=== PATIENT | male | born 1960 | race Caucasian/White ===

== ENCOUNTER → 2018-05-03 | Outpatient (CLI) | payer BC | LOC: CARD 11:46 | PROVIDERS: ATTEND Internal Medicine Cardiovascular Disease | DX: I65.29 Occlusion and stenosis of unspecified carotid artery (principal); R07.9 Chest pain, unspecified; R51 Headache; E72.11 Homocystinuria; I10 Essential (primary) hypertension; R55 Syncope and collapse | CPT/HCPCS: 93306 ==

== ENCOUNTER → 2018-05-04 | Outpatient (CLI) | payer BC | LOC: CARD 10:23 | PROVIDERS: ATTEND Internal Medicine Cardiovascular Disease | DX: R07.89 Other chest pain (principal); I10 Essential (primary) hypertension; R55 Syncope and collapse; R51 Headache; E72.11 Homocystinuria | CPT/HCPCS: 93017 ==

== ENCOUNTER → 2018-10-14 | Outpatient (CLI) | payer BC ==
--- NOTE | 2018-10-14 12:21 | Diagnostic Imaging Report ---
Exam: Ultrasound left lower extremity. Date: October 14, 2018. Indication: 57-year-old male, pain of the left anterior thigh. Comparison: None. Findings: Targeted ultrasound evaluation at the area of focal pain was performed. This is labeled at the level of the left mid/anterior thigh. There is no sonographically demonstrated fluid collection or mass. Impression: 1. No sonographically demonstrated fluid collection or mass. If there is persistent clinical concern at the area of pain, MRI would be the most optimal imaging modality for further assessment. Dictated by: Dictated on workstation # [id number]
== END ==
LOC: RAD 09:42
PROVIDERS: ATTEND Family Medicine
DX: M79.652 Pain in left thigh (principal)
CPT/HCPCS: 76881

== ENCOUNTER → 2021-05-27 | Outpatient (CLI) | payer BC ==
--- NOTE | 2021-05-27 11:41 | Diagnostic Imaging Report ---
PROCEDURE: CT head without contrast. TECHNIQUE: Multiple contiguous axial images were obtained through the brain without the use of intravenous contrast. Auto Exposure Controls were utilized during the CT exam to meet ALARA standards for radiation dose reduction. INDICATION: Carotid artery stenosis; hypotension and head pain COMPARISON: 11/05/2008 CT HEAD: CT images of the head were obtained. FINDINGS: Ventricles and sulci are within normal limits for size. There is no intracranial hemorrhage identified. There is no abnormal mass effect or shift of midline structures. IMPRESSION: Unremarkable CT of the head. Dictated by: Dictated on workstation # [id number]
== END ==
LOC: RAD 11:00
PROVIDERS: ATTEND Internal Medicine Cardiovascular Disease
DX: I65.23 Occlusion and stenosis of bilateral carotid arteries (principal); I95.9 Hypotension, unspecified
CPT/HCPCS: 70450

== ENCOUNTER → 2022-08-17 | Outpatient (CLI) | payer BC ==
--- NOTE | 2022-08-17 16:56 | Diagnostic Imaging Report ---
INDICATION: Left axillary pain Ultrasound of the left axilla shows 2 small lymph nodes measuring 10 x 4 x 8 mm and another measuring 7 x 5 x 10 mm. These have benign features. There are no pathologic masses or fluid collections. IMPRESSION: There are 2 small lymph nodes in left axilla. Dictated by: Dictated on workstation # [id number]
== END ==
LOC: RAD 13:28
PROVIDERS: ATTEND Family Medicine
DX: R59.0 Localized enlarged lymph nodes (principal)
CPT/HCPCS: 76881